=== PATIENT | male | born 1995 | race Caucasian/White ===

== ENCOUNTER 2022-01-11 21:04 | Emergency (ER) | payer OTHER ==
[2022-01-11 21:17] VITALS: BP 127/79; PULSE 69; TEMP 97.6; BMI 30.8
[2022-01-11] MEDS ORDERED: TETRACAINE 0.5% OPHTH SOLN 2 ML BOTTLE ONE (21:43)
[2022-01-11] MEDS ORDERED: ERYTHROMYCIN 0.5% OPHTHALMIC OINTMENT 3.5 GM TUBE OD ONE (21:46)
[2022-01-11] MEDS ORDERED: TETRACAINE 0.5% HCL 0.6ML DROPPER.BOTTLE OD ONE (21:46)
[2022-01-11] MEDS ORDERED: FLUORESCEIN NA 1 EA STRIP OD ONE (21:46)
[2022-01-11] MEDS ORDERED: ERYTHROMYCIN 0.5% OPHTHALMIC OINTMENT 3.5 GM TUBE ONE ×2 (21:56→21:59)
== END 2022-01-11 22:02 | disposition home or self-care (01) ==
LOC: JER 21:04 → JERFT 21:04
CPT/HCPCS: 99285-25